=== PATIENT | male | born 1980 | race Caucasian/White ===

== ENCOUNTER 2016-07-23 18:43 | Emergency (ER) | payer SELFPAY ==
[~2016-07-23 18:43] MED LIST: HYDR-2666 PO; PENI500T PO
[2016-07-23 18:45] VITALS: BP 113/73
[2016-07-23] MEDS ORDERED: HYDR-971 PO (19:07)
[2016-07-23] MEDS ORDERED: AMOX500C PO (19:07)
--- NOTE | 2016-07-23 19:07 | PHYS DOC ---
Past Medical History Past Medical History: No Pertinent History, Other Additional Past Medical Histor: migraines Past Surgical History: No Surgical History Alcohol Use: None Drug Use: None Adult General Chief Complaint Chief Complaint: DENTAL PROBLEM HPI HPI Patient is a 35 year old male who presents emergency room with complaint of left upper dental pain that began last night. Patient states he may have cracked a tooth approximately a week ago while he was eating some nuts. He denies any recent dental work antibiotic use in the past 90 days. Has no additional complaints or concerns at this time. Review of Systems Review of Systems Constitutional: Denies fever or chills [] Eyes: Denies change in visual acuity, redness, or eye pain [] HENT: Denies nasal congestion or sore throat [] Respiratory: Denies cough or shortness of breath [] Cardiovascular: No additional information not addressed in HPI [] GI: Denies abdominal pain, nausea, vomiting, bloody stools or diarrhea [] : Denies dysuria or hematuria [] Musculoskeletal: Denies back pain or joint pain [] Integument: Denies rash or skin lesions [] Neurologic: Denies headache, focal weakness or sensory changes [] Endocrine: Denies polyuria or polydipsia [] Allergies Allergies Allergies Coded Allergies Type Severity Reaction Last Updated Verified No Known Drug Allergies 01/16/16 No Physical Exam Physical Exam Constitutional: Well developed, well nourished, no acute distress, non-toxic appearance. [] HENT: Normocephalic, atraumatic, bilateral external ears normal, oropharynx moist, no oral exudates, nose normal. There is no trismus or muffled speech. Patient's first left maxillary molar is decayed and missing anterior third of the tooth. There is no active purulent drainage. There is mild gingival swelling around the tooth. There is no fluctuant pocket/gingival abscess. Eyes: PERRLA, EOMI, conjunctiva normal, no discharge. [] Neck: Normal range of motion, no tenderness, supple, no stridor. [] Cardiovascular:Heart rate regular rhythm, no murmur [] Lungs & Thorax: Bilateral breath sounds clear to auscultation [] Abdomen: Bowel sounds normal, soft, no tenderness, no masses, no pulsatile masses. [] Skin: Warm, dry, no erythema, no rash. [] Back: No tenderness, no CVA tenderness. [] Extremities: No tenderness, no cyanosis, no clubbing, ROM intact, no edema. [] Neurologic: Alert and oriented X 3, normal motor function, normal sensory function, no focal deficits noted. [] Psychologic: Affect normal, judgement normal, mood normal. [] Current Patient Data Vital Signs Vital Signs Date Time Temp Pulse Resp B/P Pulse Ox O2 Delivery O2 Flow Rate FiO2 07/23/16 18:45 98.0 60 16 98 Room Air 98.0 EKG EKG [] Radiology/Procedures Radiology/Procedures [] Course & Med Decision Making Course & Med Decision Making Pertinent Labs and Imaging studies reviewed. (See chart for details) [] Dragon Disclaimer Dragon Disclaimer This electronic medical record was generated, in whole or in part, using a voice recognition dictation system. Departure Departure Impression: Primary Impression: Dental caries Disposition: HOME, SELF-CARE Condition: GOOD Referrals: NO PCP (PCP) Patient Instructions: Dental Caries-Brief, Dental Pain, [id number] Additional Instructions: 1. Take the medication as prescribed. 2. Review the discharge instructions provided for self-care and reasons to return the emergency department. 3. Be sure to rinse your mouth with warm, salt water after eating. This will help keep the debris out of broken tooth. 4. Be sure to call Tuesday to schedule an appointment with her dentist. Scripts Hydrocodone/Apap 5-325 (Lutz 5-325 Tablet)1 Each Tablet1 Tab PO PRN Q6HRS PRN PAIN #15 TAB Ref 0 Prov:KELIN BROWN 07/23/16 Amoxicillin 500 Mg Capsule1 Cap PO TID #30 CAP Prov:KELIN BROWN 07/23/16 KELIN BROWN Jul 23, 2016 19:07
== END 2016-07-23 19:20 | disposition home or self-care (01) ==
LOC: ER 18:43
DX: K02.9 Dental caries, unspecified (principal); G43.909 Migraine, unspecified, not intractable, without status migrainosus
CPT/HCPCS: 99283

== ENCOUNTER 2016-07-29 17:39 | Emergency (ER) | payer SELFPAY ==
[~2016-07-29] VITALS: Ht 182.9 cm; Wt 79.4 kg
[~2016-07-29 17:39] MED LIST changes: +AMOX500C PO; +HYDR-971 PO
[2016-07-29] MEDS ORDERED: IV NORMAL SALINE 1000ML BAG 1,000 ML IV SCH (18:09)
[2016-07-29] MEDS ORDERED: PROCHLORPERAZINE 10 MG/2 ML VIAL. IV ONE (18:15)
[2016-07-29] MEDS ORDERED: DIPHENHYDRAMINE 50 MG/ML VIAL IVP ONE (18:15)
[2016-07-29] MEDS ORDERED: FENTANYL PF 100 MCG/2 ML VIAL. IV ONE (18:15)
[2016-07-29 18:27] LABS: BASO % 1 % (0-3); EOS % 2 % (0-3); HEMATOCRIT 44.4 % (39.0-53.0); HEMOGLOBIN 14.6 g/dL (13.0-17.5); LYMPH # 2.4 x10^3/uL (1.0-4.8); LYMPH % 33 % (24-48); MEAN CORPUSCULAR HEMOGLOBIN 30 pg (25-35); MEAN CORPUSCULAR HGB CONC 33 g/dL (31-37); MEAN CORPUSCULAR VOLUME 92 fL (79-100); MONO % 8 % (0-9); NEUT % 57 % (31-73); PLATELET COUNT 185 x10^3/uL (140-400); RED BLOOD COUNT 4.81 x10^6/uL (4.30-5.70); RED CELL DISTRIBUTION WIDTH 13.1 % (11.5-14.5); WHITE BLOOD COUNT 7.2 x10^3/uL (4.0-11.0)
[2016-07-29 18:33] LABS: CREATININE 1.2 mg/dL (0.7-1.3); GFR 69.3; POTASSIUM 3.7 mmol/L (3.5-5.1)
--- NOTE | 2016-07-29 18:35 | PHYS DOC ---
Past Medical History Past Medical History: Migraines, Other Additional Past Medical Histor: migraines Past Surgical History: No Surgical History Additional Information: 0.5 PPD Alcohol Use: None Drug Use: None Adult General Chief Complaint Chief Complaint: HEADACHE HPI HPI Patient is a 35 year old male who presents with complaint of migraine headache. The patient states that his symptoms started earlier today approximately 2 hours prior to arrival. The patient has history of dental caries and dental infection. The patient stated that originally he had pain in his teeth and took pain medication as prescribe for him earlier today to try to help. Patient noted that he started getting symptoms of headache and took Excedrin Migraine at about 4:30 today. Patient states despite taking this medication his migraine continued to worsen. The patient is currently having nausea and rates his headache as 10 out of 10. Patient however states that he has had similar symptoms in the past including severity of headache and was seen in the emergency department for treatment of approximate 6-7 months ago for the same. The patient denies any unilateral weakness, difficulty with speech or swallowing. Patient does admit to photophobia. Review of Systems Review of Systems Constitutional: Denies fever or chills [] Eyes: Denies change in visual acuity, redness, or eye pain [] HENT: Denies nasal congestion or sore throat [] Respiratory: Denies cough or shortness of breath [] Cardiovascular: Denies chest pain or edema [] GI: Nausea, denies abdominal pain, vomiting, bloody stools or diarrhea [] : Denies dysuria or hematuria [] Musculoskeletal: Denies back pain or joint pain [] Integument: Denies rash or skin lesions [] Neurologic: Headache, denies focal weakness or sensory changes [] Current Medications Current Medications Current Medications Medications (Trade) Dose Ordered Sig/[facility] Start Time Stop Time Status Last Admin Dose Admin Diphenhydramine HCl (Benadryl) 25 mg 1X ONCE 07/29/16 18:15 07/29/16 18:16 DC 07/29/16 18:29 25 MG Fentanyl Citrate (Fentanyl 2ml Vial) 50 mcg 1X ONCE 07/29/16 18:15 07/29/16 18:16 DC 07/29/16 18:36 50 MCG Ketorolac Tromethamine (Toradol) 15 mg 1X ONCE 07/29/16 19:30 07/29/16 19:31 DC 07/29/16 19:34 15 MG Prochlorperazine Edisylate (Compazine) 10 mg 1X ONCE 07/29/16 18:15 07/29/16 18:16 DC 07/29/16 18:31 10 MG Sodium Chloride (Iv Sodium Chloride 0.9% 1000ml Bag) 1,000 ml @ 1,000 mls/hr Q1H 07/29/16 18:09 07/29/16 19:08 DC 07/29/16 18:28 1,000 MLS/HR Allergies Allergies Allergies Coded Allergies Type Severity Reaction Last Updated Verified No Known Drug Allergies 01/16/16 No Physical Exam Physical Exam Constitutional: Alert, afebrile, appears in moderate to severe discomfort. [] HENT: Normocephalic, atraumatic, bilateral external ears normal, oropharynx moist, no oral exudates, nose normal. [] Eyes: PERRLA, EOMI, conjunctiva normal, no discharge. [] Neck: Normal range of motion, no tenderness, supple, no stridor. [] Cardiovascular:Heart rate regular rhythm, no murmur [] Lungs & Thorax: Bilateral breath sounds clear to auscultation [] Abdomen: Bowel sounds normal, soft, no tenderness, no masses, no pulsatile masses. [] Skin: Warm, dry, no erythema, no rash. [] Back: No tenderness, no CVA tenderness. [] Extremities: No tenderness, no cyanosis, no clubbing, ROM intact, no edema. [] Neurologic: Alert and oriented X 3, normal motor function, normal sensory function, no focal deficits noted. [] Current Patient Data Vital Signs Vital Signs Date Time Temp Pulse Resp B/P Pulse Ox O2 Delivery O2 Flow Rate FiO2 07/29/16 18:44 46 13 113/74 96 Room Air 07/29/16 17:39 96.7 96.7 Lab Values Laboratory Tests Test 07/29/16 18:15 White Blood Count 7.2x10^3/uL (4.0-11.0) Red Blood Count 4.81x10^6/uL (4.30-5.70) Hemoglobin 14.6g/dL (13.0-17.5) Hematocrit 44.4% (39.0-53.0) Mean Corpuscular Volume 92fL (79-100) Mean Corpuscular Hemoglobin 30pg (25-35) Mean Corpuscular Hemoglobin Concent 33g/dL (31-37) Red Cell Distribution Width 13.1% (11.5-14.5) Platelet Count 185x10^3/uL (140-400) Neutrophils (%) (Auto) 57% (31-73) Lymphocytes (%) (Auto) 33% (24-48) Monocytes (%) (Auto) 8% (0-9) Eosinophils (%) (Auto) 2% (0-3) Basophils (%) (Auto) 1% (0-3) Neutrophils # (Auto) 4.1x10^3uL (1.8-7.7) Lymphocytes # (Auto) 2.4x10^3/uL (1.0-4.8) Monocytes # (Auto) 0.6x10^3/uL (0.0-1.1) Eosinophils # (Auto) 0.2x10^3/uL (0.0-0.7) Basophils # (Auto) 0.0x10^3/uL (0.0-0.2) Sodium Level 138mmol/L (136-145) Potassium Level 3.7mmol/L (3.5-5.1) Chloride Level 106mmol/L (98-107) Carbon Dioxide Level 25mmol/L (21-32) Anion Gap 7 (6-14) Blood Urea Nitrogen 14mg/dL (8-26) Creatinine 1.2mg/dL (0.7-1.3) Estimated GFR (Cockcroft-Gault) 69.3 BUN/Creatinine Ratio 12 (6-20) Glucose Level 135mg/dL (70-99) H Calcium Level 9.0mg/dL (8.5-10.1) Magnesium Level 1.6mg/dL (1.8-2.4) L Total Bilirubin 1.1mg/dL (0.2-1.0) H Aspartate Amino Transferase (AST) 14U/L (15-37) L Alanine Aminotransferase (ALT) 20U/L (16-63) Alkaline Phosphatase 54U/L (46-116) Total Protein 6.8g/dL (6.4-8.2) Albumin 4.0g/dL (3.4-5.0) Albumin/Globulin Ratio 1.4 (1.0-1.7) Laboratory Tests 07/29/16 18:15 Laboratory Tests 07/29/16 18:15 EKG EKG Not performed [] Radiology/Procedures Radiology/Procedures Not performed [] Course & Med Decision Making Course & Med Decision Making Pertinent Labs and Imaging studies reviewed. (See chart for details) Patient was given IV fentanyl, Compazine, Benadryl, and Toradol. On reevaluation , patient states his symptoms have improved. Patient discharged home with recommendation to follow-up in 3-5 days if symptoms are not improving and return to the emergency department for any worsening symptoms. Advised to continue on hydrocodone prescription at home for breakthrough pain. Patient voiced understanding and agreement with treatment plan. Dragon Disclaimer Dragon Disclaimer This electronic medical record was generated, in whole or in part, using a voice recognition dictation system. Departure Departure Impression: Primary Impression: Migraine headache Disposition: HOME, SELF-CARE Condition: IMPROVED Referrals: NO PCP (PCP) Patient Instructions: Migraine Headache Additional Instructions: Follow-up with your primary doctor in 3-5 days of symptoms do not resolve. Return to the emergency department for any worsening symptoms. Problem Qualifiers Primary Impression: Migraine headache Migraine type: unspecified Status migrainosus presence: without status migrainosus Intractability: not intractable Qualified Code: G43.909 - Migraine, unspecified, not intractable, without status migrainosus DHEERAJ LANDERS MD Jul 29, 2016 18:35
[2016-07-29 18:39] LABS: ALBUMIN/GLOBULIN RATIO 1.4 (1.0-1.7); MAGNESIUM 1.6 mg/dL (1.8-2.4); TOTAL BILIRUBIN 1.1 mg/dL (0.2-1.0); TOTAL PROTEIN 6.8 g/dL (6.4-8.2)
[2016-07-29] MEDS ORDERED: KETOROLAC 15 MG/ML VIAL. IV ONE (19:30)
[2016-07-29 19:44] VITALS: BP 118/77
== END 2016-07-29 20:10 | disposition home or self-care (01) ==
LOC: ER 17:39
DX: G43.909 Migraine, unspecified, not intractable, without status migrainosus (principal); K08.89 Other specified disorders of teeth and supporting structures; F17.200 Nicotine dependence, unspecified, uncomplicated
CPT/HCPCS: 36415; 80053; 83735; 85027; 96361; 96374; 96375; 99284; J0780; J1200; J1885; J3010; J7030

== ENCOUNTER 2017-03-15 14:53 | Emergency (ER) | payer OTHER ==
[~2017-03-15] VITALS: Ht 182.9 cm; Wt 77.1 kg
[~2017-03-15 14:53] MED LIST changes: -HYDR-2666 PO; +HYDR-2758 PO
[2017-03-15 15:29] LABS: BASO % 0 % (0-3); EOS % 1 % (0-3); HEMATOCRIT 46.7 % (39.0-53.0); HEMOGLOBIN 15.8 g/dL (13.0-17.5); LYMPH % 15 % (24-48); MEAN CORPUSCULAR HEMOGLOBIN 31 pg (25-35); MEAN CORPUSCULAR HGB CONC 34 g/dL (31-37); MEAN CORPUSCULAR VOLUME 92 fL (79-100); MONO % 8 % (0-9); NEUT % 76 % (31-73); PLATELET COUNT 191 x10^3/uL (140-400); RED BLOOD COUNT 5.09 x10^6/uL (4.30-5.70); RED CELL DISTRIBUTION WIDTH 13.1 % (11.5-14.5); WHITE BLOOD COUNT 6.8 x10^3/uL (4.0-11.0)
[2017-03-15] MEDS: IV NORMAL SALINE 1000ML BAG 1,000 ML IV SCH (15:30)
[2017-03-15] MEDS: ONDANSETRON PF 4 MG/2 ML VIAL. IV ONE (15:30)
--- NOTE | 2017-03-15 15:30 | ED.ADGEN ---
Past Medical History Past Medical History: No Pertinent History, Migraines, Other Additional Past Medical Histor: migraines Past Surgical History: No Surgical History Alcohol Use: None Drug Use: Marijuana Adult General Chief Complaint Chief Complaint: ABDOMINAL PAIN HPI HPI Patient is a 36 year old man, with no significant past no history, who presents to the emergency department via EMS with a complaint of sudden onset of stabbing epigastric abdominal pain. Patient states that he was seated at his table with his , when he suddenly. Experiencing stabbing pain in the epigastric region, states it does radiate somewhat to the back, denies any chest pain or shortness breath, denies any nausea or vomiting, diarrhea, any inciting symptoms are similar lesions previously. He denies any injuries, any ingestions or exposures, any fevers or chills, urinary complaints, last bowel movement was this morning. He states it was normal. Swelling of the extremities , any rashes. Patient states that he does use marijuana occasionally, does not drink alcohol, does use cigarettes. Patient is moaning and curled up in a position on the bed at this time. Review of Systems Review of Systems Constitutional: Denies fever or chills. [] Eyes: Denies change in visual acuity. [] HENT: Denies nasal congestion or sore throat. [] Respiratory: Denies cough or shortness of breath. [] Cardiovascular: Denies chest pain or edema. [] GI: Epigastric abdominal pain, nausea, vomiting, bloody stools or diarrhea. : Denies dysuria. [] Musculoskeletal: Denies back pain or joint pain. [] Integument: Denies rash. [] Neurologic: Denies headache, focal weakness or sensory changes. [] Endocrine: Denies polyuria or polydipsia. [] Lymphatic: Denies swollen glands. [] Psychiatric: Denies depression or anxiety. [] Current Medications Current Medications Current Medications Medications (Trade) Dose Ordered Sig/[facility] Start Time Stop Time Status Last Admin Dose Admin Famotidine (Pepcid) 20 mg 1X ONCE 03/15/17 15:30 03/15/17 15:31 DC 03/15/17 15:31 20 MG Fentanyl Citrate (Fentanyl 2ml Vial) 25 mcg PRN Q15MIN PRN 03/15/17 15:30 03/15/17 18:43 DC 11/7/17 15:31 25 MCG Info (Do NOT chart on this entry -- for MONITORING) 1 each PRN DAILY PRN 03/15/17 15:45 03/15/17 18:43 DC Iohexol (Omnipaque 300 Mg/ml) 75 ml 1X ONCE 03/15/17 15:45 03/15/17 15:46 DC 03/15/17 16:12 75 ML Ondansetron HCl (Zofran) 4 mg 1X ONCE 03/15/17 15:30 03/15/17 15:31 DC 03/15/17 15:30 4 MG Sodium Chloride 1,000 ml @ 1,000 mls/hr Q1H 03/15/17 15:18 03/15/17 16:17 DC 03/15/17 15:30 1,000 MLS/HR Allergies Allergies Allergies Coded Allergies Type Severity Reaction Last Updated Verified No Known Drug Allergies 01/16/16 No Physical Exam Physical Exam Constitutional: Well developed, well nourished, patient appears uncomfortable, is curled in the position on the bed, non-toxic appearance. [] HENT: Normocephalic, atraumatic, bilateral external ears normal, oropharynx moist, no oral exudates, nose normal. [] Eyes: PERRLA, EOMI, conjunctiva normal, no discharge. [] Neck: Normal range of motion, no tenderness, supple, no stridor. [] Cardiovascular:Heart rate regular rhythm, no murmur , S1, S2, rubs or gallops.[] Lungs & Thorax: Bilateral breath sounds clear to auscultation, no wheezing, rhonchi, rales. No chest wall crepitus or tenderness. [] Abdomen: Bowel sounds normal, soft, patient with tenderness to palpation in the epigastric region, no tenderness to palpation of the lower abdomen, no rebound or rigidity, positive for voluntary guarding, but most in the, no masses, no pulsatile masses. [] Skin: Warm, dry, no erythema, no rash. [] Back: No tenderness, no CVA tenderness. [] Extremities: No tenderness, no cyanosis, no clubbing, ROM intact, no edema. [] Neurologic: Alert and oriented X 3, normal motor function, normal sensory function, no focal deficits noted. [] Psychologic: Affect normal, judgement normal, mood normal. [] Current Patient Data Vital Signs Vital Signs Date Time Temp Pulse Resp B/P (MAP) Pulse Ox O2 Delivery O2 Flow Rate FiO2 03/15/17 17:15 72 18 126/72 (90) 98 Room Air 03/15/17 14:53 98.2 98.2 Lab Values Laboratory Tests Test 03/15/17 15:00 03/15/17 16:47 White Blood Count 6.8 x10^3/uL (4.0-11.0) Red Blood Count 5.09 x10^6/uL (4.30-5.70) Hemoglobin 15.8 g/dL (13.0-17.5) Hematocrit 46.7 % (39.0-53.0) Mean Corpuscular Volume 92 fL (79-100) Mean Corpuscular Hemoglobin 31 pg (25-35) Mean Corpuscular Hemoglobin Concent 34 g/dL (31-37) Red Cell Distribution Width 13.1 % (11.5-14.5) Platelet Count 191 x10^3/uL (140-400) Neutrophils (%) (Auto) 76 % (31-73) H Lymphocytes (%) (Auto) 15 % (24-48) L Monocytes (%) (Auto) 8 % (0-9) Eosinophils (%) (Auto) 1 % (0-3) Basophils (%) (Auto) 0 % (0-3) Neutrophils # (Auto) 5.2 x10^3uL (1.8-7.7) Lymphocytes # (Auto) 1.0 x10^3/uL (1.0-4.8) Monocytes # (Auto) 0.5 x10^3/uL (0.0-1.1) Eosinophils # (Auto) 0.0 x10^3/uL (0.0-0.7) Basophils # (Auto) 0.0 x10^3/uL (0.0-0.2) Sodium Level 141 mmol/L (136-145) Potassium Level 3.9 mmol/L (3.5-5.1) Chloride Level 104 mmol/L (98-107) Carbon Dioxide Level 24 mmol/L (21-32) Anion Gap 13 (6-14) Blood Urea Nitrogen 12 mg/dL (8-26) Creatinine 1.2 mg/dL (0.7-1.3) Estimated GFR (Cockcroft-Gault) 68.9 BUN/Creatinine Ratio 10 (6-20) Glucose Level 106 mg/dL (70-99) H Calcium Level 9.1 mg/dL (8.5-10.1) Total Bilirubin 1.2 mg/dL (0.2-1.0) H Aspartate Amino Transferase (AST) 36 U/L (15-37) Alanine Aminotransferase (ALT) 33 U/L (16-63) Alkaline Phosphatase 74 U/L (46-116) Troponin I Quantitative < 0.017 ng/mL (0.000-0.055) Total Protein 7.2 g/dL (6.4-8.2) Albumin 4.2 g/dL (3.4-5.0) Albumin/Globulin Ratio 1.4 (1.0-1.7) Lipase 116 U/L (73-393) Urine Collection Type Unknown Urine Color Yellow Urine Clarity Clear Urine pH 6.5 Urine Specific [place] >=1.030 Urine Protein Negative mg/dL (NEG-TRACE) Urine Glucose (UA) Negative mg/dL (NEG) Urine Ketones (Stick) Negative mg/dL (NEG) Urine Blood Negative (NEG) Urine Nitrite Negative (NEG) Urine Bilirubin Negative (NEG) Urine Urobilinogen Dipstick 4.0 mg/dL (0.2 mg/dL) Urine Leukocyte Esterase Negative (NEG) Urine RBC 0 /HPF (0-2) Urine WBC 0 /HPF (0-4) Urine Bacteria 0 /HPF (0-FEW) Urine Mucus Mod /LPF Urine Opiates Screen Neg (NEG) Urine Methadone Screen Neg (NEG) Urine Barbiturates Neg (NEG) Urine Phencyclidine Screen Neg (NEG) Urine Amphetamine/Methamphetamine Neg (NEG) Urine Benzodiazepines Screen Neg (NEG) Urine Cocaine Screen Neg (NEG) Urine Cannabinoids Screen Pos (NEG) Urine Ethyl Alcohol Neg (NEG) Laboratory Tests 03/15/17 15:00 Laboratory Tests 03/15/17 15:00 EKG EKG EC: Sinus rhythm, heart rate 69 beats/minute, upright axis, QTC of 419, OK 118, OK 140, incomplete right bundle-branch block noted, contour normality is noted in the septal leads, and anterior leads, moderate baseline artifact noted, no ST depressions, does not meet STEMI criteria, abnormal ECG, as interpreted by me. Radiology/Procedures Radiology/Procedures [][facility] [address] [place] [address] IMAGING REPORT Signed PATIENT: LORAINE VIZCARRA ACCOUNT: [id number] : 1980 LOCATION: ER AGE: 36 SEX: M EXAM STATUS: REG ER ORD. PHYSICIAN: DIANNA ROY DO REASON: Abd pain PROCEDURE: CT ABD PELV W/ IV CONTRST ONLY EXAM: CT abdomen/pelvis with contrast. HISTORY: Sudden onset sensitive abdominal pain. TECHNIQUE: Computed tomography of the abdomen and pelvis was performed after the intravenous administration of 75 mL Omnipaque 300. COMPARISON: None. FINDINGS: Lung windows through the visualized portions of the bases reveal mild atelectasis. Bone windows reveal no suspicious lesions. A lucent lesion in the right iliac bone is likely a benign cyst or hemangioma. The appendix is not inflamed. There is no obstruction. Fluid throughout the colon suggest diarrhea. There are no pathologically enlarged lymph nodes. The liver, gallbladder, adrenal glands and pancreas are unremarkable. There are calcified granulomas in the spleen. Subcentimeter cysts are seen in both kidneys. IMPRESSION: 1. Correlate for diarrhea or mild colitis. No other cause for acute pain is identified. *One or more of the following individualized dose reduction techniques were utilized for this examination: 1. Automated exposure control. 2. Adjustment of the mA and/or kV according to patient size. 3. Use of iterative reconstruction technique. DICTATED and SIGNED BY: CATRACHO ORTEGA MD DATE: 03/15/17 1620 CC: DIANNA ROY DO; NO PCP ~ Course & Med Decision Making Course & Med Decision Making Pertinent Labs and Imaging studies reviewed. (See chart for details) After discussion with patient bedside, laboratory studies and imaging obtained, along with administration of analgesia. CT reveals evidence of mild colitis, I did discuss findings with patient is resting much more comfortably at this time. Vital signs remained within normal limits. Laboratory studies not reveal any concerning findings, patient is positive for marijuana which he did admit to. I did discuss findings with patient, patient now reports that his young child is currently getting over "a stomach bug", discussed with patient that he may be experiencing similar symptoms, any experiencing diarrhea, in the future. We did discuss use of Bentyl, [id number] medications for discomfort and use of Imodium if diarrhea becomes persistent, at this point patient has only had 2 stools. We did discuss that marijuana may exacerbate his symptoms. We discussed return to the emergency department dehydration or other concerning symptoms develop, with patient and at bedside. Patient and voiced understanding and agreement with precautions, prescription, instructions and plan, discharged home in stable condition with plan as above. Dragon Disclaimer Dragon Disclaimer This electronic medical record was generated, in whole or in part, using a voice recognition dictation system. Departure Impression: Primary Impression: Abdominal pain Additional Impression: Marijuana abuse Disposition: 01 HOME, SELF-CARE Condition: IMPROVED Scripts Dicyclomine Hcl (BENTYL) 10 Mg Capsule 10 MG PO PRN QID Y for ABD CRAMPING, #12 TAB Prov: DIANNA ROY DO 03/15/17 Problem Qualifiers DIANNA ROY DO Mar 15, 2017 15:30
[2017-03-15] MEDS: FAMOTIDINE 20 MG/2 ML VIAL IVP ONE (15:31)
[2017-03-15] MEDS: fentaNYL PF VIAL 100 MCG/2 ML VIAL IV PRN (15:31)
[2017-03-15] MEDS ORDERED: CONTRAST GIVEN MC PRN (15:45)
[2017-03-15 15:47] LABS: CALCIUM 9.1 mg/dL (8.5-10.1); CREATININE 1.2 mg/dL (0.7-1.3); GFR 68.9; POTASSIUM 3.9 mmol/L (3.5-5.1)
--- NOTE | 2017-03-15 15:49 | EKG ---
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
[2017-03-15 15:53] LABS: ALBUMIN 4.2 g/dL (3.4-5.0); ALBUMIN/GLOBULIN RATIO 1.4 (1.0-1.7); TOTAL BILIRUBIN 1.2 mg/dL (0.2-1.0); TOTAL PROTEIN 7.2 g/dL (6.4-8.2)
[2017-03-15] MEDS: IOHEXOL 300 MG/ML 75 ML VIAL IV ONE (16:12)
--- NOTE | 2017-03-15 16:30 | RAD ---
EXAM: CT abdomen/pelvis with contrast. HISTORY: Sudden onset sensitive abdominal pain. TECHNIQUE: Computed tomography of the abdomen and pelvis was performed after the intravenous administration of 75 mL Omnipaque 300. COMPARISON: None. FINDINGS: Lung windows through the visualized portions of the bases reveal mild atelectasis. Bone windows reveal no suspicious lesions. A lucent lesion in the right iliac bone is likely a benign cyst or hemangioma. The appendix is not inflamed. There is no obstruction. Fluid throughout the colon suggest diarrhea. There are no pathologically enlarged lymph nodes. The liver, gallbladder, adrenal glands and pancreas are unremarkable. There are calcified granulomas in the spleen. Subcentimeter cysts are seen in both kidneys. IMPRESSION: 1. Correlate for diarrhea or mild colitis. No other cause for acute pain is identified. *One or more of the following individualized dose reduction techniques were utilized for this examination: 1. Automated exposure control. 2. Adjustment of the mA and/or kV according to patient size. 3. Use of iterative reconstruction technique.
[2017-03-15 17:05] LABS: BILIRUBIN,URINE NEGATIVE (NEG); GLUCOSE,URINE NEGATIVE (NEG); NITRITE,URINE NEGATIVE (NEG); PH,URINE 6.5; PROTEIN,URINE NEGATIVE (NEG-TRACE)
[2017-03-15 17:11] LABS: BACTERIA,URINE 0 /HPF (0-FEW); RBC,URINE 0 /HPF (0-2); WBC,URINE 0 /HPF (0-4)
[2017-03-15 17:12] LABS: BARBITURATES NEG (NEG); BENZODIAZEPINES NEG (NEG); CANNABINOIDS POS (NEG); COCAINE NEG (NEG); METHADONE NEG (NEG); OPIATES NEG (NEG); PHENCYCLIDINE NEG (NEG)
[2017-03-15 17:15] VITALS: BP 126/72
[2017-03-15] MEDS ORDERED: LEVO50TA5 PO (17:57)
[2017-03-15] MEDS ORDERED: CARV6.252 PO (17:57)
[2017-03-15] MEDS ORDERED: DOCU100C28 PO (17:57)
[2017-03-15] MEDS ORDERED: CALC1TAB PO (17:57)
[2017-03-15] MEDS ORDERED: LAMO100T5 PO (17:57)
[2017-03-15] MEDS ORDERED: DUTA0.5C PO (17:57)
[2017-03-15] MEDS ORDERED: CHOL2000 PO (17:57)
[2017-03-15] MEDS ORDERED: DICY10CA53 PO (18:06)
== END 2017-03-15 18:43 | disposition home or self-care (01) ==
LOC: ER 14:53
DX: R10.13 Epigastric pain (principal); F12.10 Cannabis abuse, uncomplicated; G43.909 Migraine, unspecified, not intractable, without status migrainosus; F17.210 Nicotine dependence, cigarettes, uncomplicated
CPT/HCPCS: 36415; 74177; 80053; 80307; 81001; 83690; 84484; 85025; 93005; 96361; 96374; 96375; J2405; J3010; J7030; Q9967; S0028; 99285-25; G0479

== ENCOUNTER 2017-06-18 00:03 | Emergency (ER) | payer OTHER | END 2017-06-18 01:15 | disposition home or self-care (01) | LOC: ER 00:03 | DX: K04.7 Periapical abscess without sinus (principal) | CPT/HCPCS: 99283 ==

== ENCOUNTER 2018-11-10 01:28 | Emergency (ER) | payer OTHER ==
[~2018-11-10] VITALS: Ht 182.9 cm; Wt 77.1 kg
[~2018-11-10 01:28] MED LIST changes: +AMOX875T PO; +CALC1TAB PO; +CARV6.2511 PO; +CHOL2000 PO; +DICY10CA53 PO; +DOCU100C28 PO; +DUTA0.5C PO; -HYDR-2758 PO; +HYDR-2761 PO; +HYDR-3164 PO; -HYDR-971 PO; +LAMO100T5 PO; +LEVO50TA5 PO; +TRAM-48 PO
[2018-11-10 01:30] VITALS: BP 146/71
[2018-11-10] MEDS ORDERED: SUMA50TA3 PO (02:13)
[2018-11-10] MEDS ORDERED: PROCHLORPERAZINE 10 MG/2 ML VIAL. IV ONE (02:30)
[2018-11-10] MEDS ORDERED: IV NORMAL SALINE 1000ML BAG 1,000 ML IV ONE (02:30)
[2018-11-10] MEDS ORDERED: KETOROLAC 15 MG/ML VIAL. IV ONE (02:30)
[2018-11-10] MEDS ORDERED: diphenhydrAMINE 50 MG/ML VIAL IVP ONE (02:30)
[2018-11-10] MEDS ORDERED: KETOROLAC 30 MG/ML VIAL. IM ONE (02:30)
--- NOTE | 2018-11-10 03:08 | PHYS DOC ---
Past Medical History Past Medical History: Other Additional Past Medical Histor: CLUSTER HEADACHES Past Surgical History: No Surgical History Alcohol Use: None Drug Use: None Adult General Chief Complaint Chief Complaint: HEADACHE HPI HPI Patient is a 38 year old m biba with h/a. gradual onset 8 pm, was able to go to sleep but woke up at 1230 am and it was more severe. diffuse front to back of head a/w vomiting nausea light sensitivity, aura "over evertyhing" similar to prior migraines. has had to come to er for similar symptoms int he past. no fever no head trauma. not sudden onset Review of Systems Review of Systems Constitutional: Denies fever or chills [] Eyes: Denies change in visual acuity, redness, or eye pain [] HENT: Denies nasal congestion or sore throat [] Respiratory: Denies cough or shortness of breath [] Cardiovascular: No additional information not addressed in HPI [] GI: Denies abdominal pain, nausea, vomiting, bloody stools or diarrhea [] : Denies dysuria or hematuria [] Musculoskeletal: Denies back pain or joint pain [] Integument: Denies rash or skin lesions [] All other systems were reviewed and found to be within normal limits, except as documented in this note. Current Medications Current Medications Current Medications Medications (Trade) Dose Ordered Sig/Olivia Start Time Stop Time Status Last Admin Dose Admin Diphenhydramine HCl (Benadryl) 50 mg 1X ONCE 11/10/18 02:30 11/10/18 02:30 DC Ketorolac Tromethamine (Toradol 15mg Vial) 15 mg 1X ONCE 11/10/18 02:30 11/10/18 02:30 DC Ketorolac Tromethamine (Toradol 30mg Vial) 30 mg 1X ONCE 11/10/18 02:30 11/10/18 02:31 DC 11/10/18 02:26 30 MG Prochlorperazine Edisylate (Compazine) 10 mg 1X ONCE 11/10/18 02:30 11/10/18 02:30 DC Sodium Chloride 1,000 ml @ 1,000 mls/hr 1X ONCE 11/10/18 02:30 11/10/18 02:30 DC Allergies Allergies Allergies Coded Allergies Type Severity Reaction Last Updated Verified No Known Drug Allergies 01/16/16 No Physical Exam Physical Exam Constitutional: Well developed, well nourished. photophobic distress HENT: Normocephalic, atraumatic, bilateral external ears normal, oropharynx moist, no oral exudates, nose normal. [] Eyes: PERRLA, EOMI, conjunctiva normal, no discharge. [] Neck: Normal range of motion, no tenderness, supple, no stridor. [] Pulmonary: Normal respiratory effort no increased work of breathing no obvious chest wall trauma Abdomen: Bowel sounds normal, soft, no tenderness, no masses, no pulsatile ma sses. [] Skin: Warm, dry, no erythema, no rash. [] Back: No tenderness, no CVA tenderness. [] Extremities: No tenderness, no cyanosis, no clubbing, ROM intact, no edema. [] Neurologic: Alert and oriented X 3, normal motor function, normal sensory function, no focal deficits noted. [] Psychologic: Affect normal, judgement normal, mood normal. [] EKG EKG [] Radiology/Procedures Radiology/Procedures [] Course & Med Decision Making Course & Med Decision Making Pertinent Labs and Imaging studies reviewed. (See chart for details) []I ordered migraine cocktail initially but however the nurse said that before she was able to give the medicine he woke up and said that his pain and got away completely we turned the lights on he had no further pain we did give him a shot of Toradol IM times one anyway just in case he were to come back however perhaps the Excedrin and the Benadryl that he took prior to arrival finally kicked in. Reassurance was provided he wanted some oral agents to take as home as needed so I prescribed him Imitrex. Dragshad Disclaimer Dragon Disclaimer This electronic medical record was generated, in whole or in part, using a voice recognition dictation system. Departure Departure Impression: Primary Impression: Headache Disposition: 01 HOME, SELF-CARE Condition: STABLE Referrals: NO PCP Patient Instructions: Migraine Headache, [id number] Scripts Sumatriptan Succinate (IMITREX) 50 Mg Tablet 50 MG PO ONCE PRN for MIGRAINE HEADACHE, #10 TAB Prov: SOBIA FLOOD MD 11/10/18 SOBIA FLOOD MD Nov 10, 2018 03:08
== END 2018-11-10 02:30 | disposition home or self-care (01) ==
LOC: ER 01:28
DX: G43.109 Migraine with aura, not intractable, without status migrainosus (principal)
CPT/HCPCS: 96372; 99283; J1885

== ENCOUNTER 2019-10-19 05:21 | Emergency (ER) | payer MEDICAID, OTHER ==
[~2019-10-19] VITALS: Ht 182.9 cm; Wt 79.0 kg
[~2019-10-19 05:21] MED LIST changes: +SUMA50TA3 PO
[2019-10-19] MEDS ORDERED: ACETAMINOPHEN 500 MG TABLET PO ONE (05:45)
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
[2019-10-19] MEDS ORDERED: BUPIVACAINE MPF 0.5% 30 ML VIAL. INJ ONE (06:00)
[2019-10-19 06:24] VITALS: BP 147/87
== END 2019-10-19 06:20 | disposition home or self-care (01) ==
LOC: ER 05:21
DX: K02.9 Dental caries, unspecified (principal); K08.89 Other specified disorders of teeth and supporting structures; G43.909 Migraine, unspecified, not intractable, without status migrainosus; F17.200 Nicotine dependence, unspecified, uncomplicated; F12.90 Cannabis use, unspecified, uncomplicated
CPT/HCPCS: 64400; 99284; J3490

== ENCOUNTER 2021-03-19 04:27 | Emergency (ER) | payer MEDICAID ==
[~2021-03-19] VITALS: Ht 182.9 cm; Wt 77.3 kg
[2021-03-19 04:40] VITALS: BP 169/93
--- NOTE | 2021-03-19 06:11 | PHYS DOC ---
Past Medical History Past Medical History: Migraines Additional Past Medical Histor: CLUSTER HEADACHES Past Surgical History: No Surgical History Smoking Status: Current Every Day Smoker Alcohol Use: None Drug Use: None General Adult EDM: Chief Complaint: DENTAL PROBLEM HPI: HPI: Patient is a 40 year old male who presents here with several days of right upper dental pain. He reports that symptoms began after he ate potato chips. He thinks he might have scratched his gums. He has multiple dental caries. He has a dentist at [facility], though he has not contacted them for an appointment. He denies any other injury or trauma. Denies facial swelling. Denies gingival bleeding. Denies fevers or chills. No sore throat, congestion, cough, dyspnea, chest pain. He reports that he took Excedrin early this morning, with minimal relief. He declines a dental block. Review of Systems: Review of Systems: Constitutional: Denies fever or chills. [] HENT: Denies nasal congestion or sore throat. Reports right upper dental pain and gingival pain. Respiratory: Denies cough or shortness of breath. [] Cardiovascular: Denies chest pain. GI: Denies nausea or vomiting Neurologic: Denies headache, weakness or dizziness Lymphatic: Denies swollen glands. [] Psychiatric: Denies depression or anxiety. [] Heart Score: C/O Chest Pain: No Risk Factors: Risk Factors: DM, Current or recent (<one month) smoker, HTN, HLP, family history of CAD, obesity. Risk Scores: Score 0 - 3: 2.5% MACE over next 6 weeks - Discharge Home Score 4 - 6: 20.3% MACE over next 6 weeks - Admit for Clinical Observation Score 7 - 10: 72.7% MACE over next 6 weeks - Early Invasive Strategies Allergies: Allergies: Allergies Coded Allergies Type Severity Reaction Last Updated Verified No Known Drug Allergies 01/16/16 No Physical Exam: PE: Constitutional: Well developed, well nourished, no acute distress, non-toxic appearance. [] HENT: Normocephalic, atraumatic, oropharynx is patent, clear, uvula midline, no facial or oral edema, no drooling or trismus, external ears normal bilaterally, mucous membranes are moist. Multiple significant dental caries, multiple broken teeth. He does have gingivitis, with slightly worse gingivitis and gingival edema and redness of the right upper dentition and gingiva. No focal fluctuance, no drainage, no focal percussion tenderness. No oral rash or other lesions are noted. Overall dental hygiene is quite poor. Eyes: Sclera are clear, anicteric, conjunctival noninjected Neck: Trachea midline, no tenderness, neck is supple, no adenopathy Cardiovascular: Well-perfused appearing Lungs & Thorax: Respirations are nonlabored, speaks in full and clear sentences, no stridor Skin: Warm, dry, intact Extremities: No limb deformity, no peripheral edema Neurologic: Alert and oriented X 3, ambulatory with a steady gait, speech clear and fluent, no facial asymmetry. Psychologic: Affect is flat, he is cooperative. Current Patient Data: Vital Signs: Vital Signs Date Time Temp Pulse Resp B/P (MAP) Pulse Ox O2 Delivery O2 Flow Rate FiO2 03/19/21 04:40 98.6 86 14 169/93 (118) 99 Room Air 98.6 EKG: EKG: [] Radiology/Procedures: Radiology/Procedures: [] Course & Med Decision Making: Course & Med Decision Making He declined local anesthesia or dental block. He is offered IM Toradol, which he accepted. No sedating medications are given, as he drove here. He is given a first dose of p.o. clindamycin. He initially reported no known drug allergies but then reports that he was told that he should not take penicillin due to some adverse reaction in childhood, and he is unsure if he is actually taken any penicillin-containing products as an adult. I have strongly encouraged him to reach out to his dentist for definitive care and further treatment. No current indication for any invasive exams or imaging at this time. Home care instructions are given. I recommend a bland, soft diet. Return precautions given. He is comfortable with the plan of care. Dragon Disclaimer: Cristofer Disclaimer: This electronic medical record was generated, in whole or in part, using a voice recognition dictation system. Departure Departure Impression: Primary Impression: Pain, dental Additional Impression: Gingivitis Disposition: HOME / SELF CARE / HOMELESS Condition: STABLE Referrals: RADHA LIMON PA-C (PCP) Patient Instructions: Dental Caries, Gingivitis Additional Instructions: Take the antibiotics as directed. Take the pain medication as needed. Please contact your dentist at [facility] sometime this week for follow-up. Return for severe facial swelling, fever 100.4 or higher, if you have difficulty swallowing, difficulty breathing or any other concerns. Scripts Clindamycin Hcl (CLINDAMYCIN HCL) 300 Mg Capsule 1 CAP PO TID for 7 Days, #21 CAP Prov: CARMEN ALMANZA DO 03/19/21 Hydrocodone Bit/Acetaminophen (HYDROCODONE-APAP 5-325 ) 1 Tab Tablet 1 TAB PO PRN Q6HRS PRN for PAIN, #15 TAB 0 Refills Prov: CARMEN ALMANZA DO 03/19/21 CARMEN ALMANZA DO Mar 19, 2021 06:11
[2021-03-19] MEDS ORDERED: CLIN-94 PO (06:21)
[2021-03-19] MEDS ORDERED: HYDR-2761 PO (06:21)
[2021-03-19] MEDS ORDERED: KETOROLAC 60 MG/2 ML VIAL. IM ONE (06:30)
[2021-03-19] MEDS ORDERED: CLINDAMYCIN HCL 150 MG CAPSULE. PO ONE (06:30)
== END 2021-03-19 06:45 | disposition home or self-care (01) ==
LOC: ER 04:27
DX: K05.10 Chronic gingivitis, plaque induced (principal); K02.9 Dental caries, unspecified; G43.909 Migraine, unspecified, not intractable, without status migrainosus; F17.200 Nicotine dependence, unspecified, uncomplicated
CPT/HCPCS: 96372; 99283; J1885